=== PATIENT | female | born 1995 | race Hispanic/Latino ===

== ENCOUNTER 2022-12-29 02:45 | Emergency (ER) | payer MEDICAID ==
[~2022-12-29] VITALS: Ht 152.4 cm; Wt 78.5 kg
[2022-12-29 05:02] VITALS: BP 112/66; PULSE 68; RESP 18; O2SAT 98
== END 2022-12-29 06:46 | disposition home or self-care (01) ==
LOC: EDH 02:45
DX: R11.2 Nausea with vomiting, unspecified (principal); R19.7 Diarrhea, unspecified
CPT/HCPCS: 81025

== ENCOUNTER 2023-02-21 14:24 | Emergency (ER) | payer MEDICAID ==
[~2023-02-21] VITALS: Ht 152.4 cm; Wt 76.2 kg
[2023-02-21 14:54] VITALS: BP 131/70; PULSE 112; RESP 20
[2023-02-21] MEDS ORDERED: ACETAMINOPHEN 325 MG TAB PO ONE (15:00)
[2023-02-21 15:03] VITALS: TEMP 101.7
[2023-02-21 15:23] LABS: RAPID GROUP A STREP negative (NEGATIVE)
[2023-02-21 15:27] LABS: SARS-CoV-2, RNA, NAAT NEGATIVE SARS CoV-2 (NEGATIVE)
[2023-02-21 15:33] LABS: INFLUENZA TYPE A Negative For Type A (NEGATIVE); INFLUENZA TYPE B Negative For Type B (NEGATIVE)
== END 2023-02-21 19:20 | disposition left against medical advice (07) ==
LOC: EDH 14:24
DX: R50.9 Fever, unspecified (principal); R05.9 Cough, unspecified; Z20.822 Contact with and (suspected) exposure to COVID-19; Z53.21 Procedure and treatment not carried out due to patient leaving prior to being seen by health care provider
CPT/HCPCS: 87635; 87804; 87880; 99281

== ENCOUNTER 2023-09-12 07:41 | Emergency (ER) | payer MEDICAID ==
[~2023-09-12] VITALS: Ht 152.4 cm; Wt 77.1 kg
[2023-09-12] MEDS: 0.9%NACL 1000ML 1,000 ML IV ONE (08:15)
[2023-09-12] MEDS: ONDANSETRON 4MG INJ IVP ONE (08:15)
[2023-09-12] MEDS: MORPHINE 2 MG SYG IVP ONE (08:15)
[2023-09-12 08:19] LABS: BASOPHILS # (AUTO) 0.03 K/uL (0.00-0.20); BASOPHILS % (AUTO) 0.4 % (0.0-5.0); EOSINOPHILS # (AUTO) 0.18 K/uL (0.00-0.70); EOSINOPHILS % (AUTO) 2.3 % (0.0-8.0); IMMATURE GRANULOCYTE ABSOLUTE 0.02 K/uL (0-1); LYMPHOCYTES # (AUTO) 1.8 K/uL (1.0-4.8); MEAN CORPUSCULAR HEMOGLOBIN 28.7 pg (27.0-33.0); MEAN CORPUSCULAR HGB CONC 33.4 g/dL (32.0-36.0); MEAN CORPUSCULAR VOLUME 85.8 fL (79-99); MONOCYTES # (AUTO) 0.7 K/uL (0.1-1.0); MONOCYTES % (AUTO) 8.7 % (3.0-13.0); NEUTROPHILS # (AUTO) 5.2 K/uL (1.8-7.7); NEUTROPHILS % (AUTO) 65.3 % (40.0-77.0); PLATELET COUNT (AUTO) 177 K/uL (130-400); RED BLOOD CELL COUNT(AUTO) 4.43 MIL/uL (4.00-5.50); RED CELL DISTRIBUTION WIDTH 12.5 % (11.0-15.5); WHITE BLOOD COUNT (AUTO) 7.9 K/uL (4.8-10.8)
[2023-09-12 08:26] VITALS: PULSE 65
[2023-09-12 08:26] LABS: CREATININE 0.6 mg/dL (0.5-1.0); POTASSIUM 3.5 mmol/L (3.5-5.1)
[2023-09-12 12:39] VITALS: BP 97/53; RESP 18; O2SAT 97
[2023-09-12 13:09] LABS: APPEARANCE,URINE CLEAR (CLEAR); BILIRUBIN,URINE NEGATIVE (NEGATIVE); COLOR,URINE LIGHT-YELLOW (YELLOW); GLUCOSE, URINE (UA) NEGATIVE (NEGATIVE); KETONES,URINE NEGATIVE (NEGATIVE); LEUKOCYTE ESTERASE ,URINE 75 Leu/uL (NEGATIVE); NITRATE,URINE NEGATIVE (NEGATIVE); OCCULT BLOOD,URINE LARGE (NEGATIVE); PH,URINE 6.5 (5.0-8.0); PROTEIN,URINE NEGATIVE (NEGATIVE); UROBILINOGEN,URINE 0.2 mg/dL (0.2-1.0)
[2023-09-12 13:19] LABS: HCG,QUALITATIVE URINE POSITIVE (NEGATIVE)
[2023-09-12] MEDS: ACETAMINOPHEN 500 MG TABLET PO ONE (13:20)
[2023-09-12] MEDS ORDERED: CEPH500B PO (13:28)
[2023-09-12 13:45] LABS: BACTERIA,URINE RARE /HPF (None Seen); MUCUS,URINE RARE LPF (None Seen); RBC,URINE TNTC /HPF (0-1); SQUAMOUS EPITHELIAL CELL,UR RARE /HPF (0-2)
== END 2023-09-12 14:07 | disposition home or self-care (01) ==
LOC: EDH 07:41
DX: O03.9 Complete or unspecified spontaneous abortion without complication (principal); Z3A.15 15 weeks gestation of pregnancy; Z98.890 Other specified postprocedural states
CPT/HCPCS: 99285; 96374; 96361; 76801; 96375; 80048; 84702; 85025; 85018; 87086; 81001; 81025; 36415; 88300; 85014; J2270; J7030; J2405